=== PATIENT | female | born 1955 | race Caucasian/White ===

== ENCOUNTER 2019-05-20 10:58 | Emergency (ER) | payer OTHER ==
[~2019-05-20] VITALS: Ht 154.9 cm; Wt 68.0 kg
[2019-05-20] MEDS ORDERED: FISH OIL 1,001000 M2 PO (11:10)
[2019-05-20] MEDS ORDERED: GLUCOSAMINE HC500 MG PO (11:10)
[2019-05-20] MEDS ORDERED: MAGOX 400400 MG PO (11:10)
[2019-05-20] MEDS ORDERED: ZOFRAN ODT4 MG DISSOLVE (12:53)
[2019-05-20 13:09] VITALS: BP 150/73
== END 2019-05-20 13:10 | disposition home or self-care (01) ==
LOC: M.ERS 10:58
DX: S06.0X0A Concussion without loss of consciousness, initial encounter (principal); W22.8XXA Striking against or struck by other objects, initial encounter; Y92.89 Other specified places as the place of occurrence of the external cause; Y93.89 Activity, other specified; Y99.8 Other external cause status